=== PATIENT | male | born 1965 | race Two or more races ===

== ENCOUNTER 2020-01-16 10:48 | Emergency (ER) | payer MEDICAID ==
[~2020-01-16] VITALS: Ht 170.2 cm; Wt 70.3 kg
--- NOTE | 2020-01-16 11:00 | NUR ---
PT [id number], FROM CLINIC, FOR WORSENING TREMORS TODAY. VS CHECKED. STABLE. AWAITING MD ROLLE
[2020-01-16] MEDS ORDERED: DARU1TAB PO (11:05)
[2020-01-16] MEDS ORDERED: EMTR1TAB17 PO (11:05)
[2020-01-16] MEDS ORDERED: IBUP-1955 PO (11:05)
[2020-01-16] MEDS ORDERED: TRAM50TA2 PO (11:05)
[2020-01-16] MEDS ORDERED: DICL50TA9 PO (11:05)
[2020-01-16 12:41] VITALS: BP 124/73
--- NOTE | 2020-01-16 12:41 | NUR ---
Patient discharged to home in stable condition. Written and verbal after care instructions given. Patient verbalizes understanding of instruction.
== END 2020-01-16 12:41 | disposition home or self-care (01) ==
LOC: ER 10:49
DX: R25.1 Tremor, unspecified (principal); Z85.118 Personal history of other malignant neoplasm of bronchus and lung; Z88.1 Allergy status to other antibiotic agents; Z60.2 Problems related to living alone; Z79.899 Other long term (current) drug therapy